=== PATIENT | female | born 1945 | race Caucasian/White ===

== ENCOUNTER → 2016-12-01 | Outpatient (CLI) | payer MEDICARE ==
[2016-12-01 14:26] LABS: HEMOGLOBIN 14.7 gm/dl (12.3-15.3); RED BLOOD COUNT 5.15 M/UL (4.00-5.10)
[2016-12-01 14:45] LABS: BUN/CREATININE RATIO 22 (0-10)
== END ==
LOC: OPSV 13:12
PROVIDERS: Physician Assistant
DX: J18.9 Pneumonia, unspecified organism (principal); R05 Cough; E86.0 Dehydration
CPT/HCPCS: 36415; 71020; 80048; 85025; 96360; J7030

== ENCOUNTER → 2021-01-09 | Outpatient (CLI) | payer MEDICARE ==
[~2021-01-09] MED LIST: ACIPHEX20 MG PO; ANTIVERT 12.512.5 MG PO; AVAPRO75 MG PO; CARDIZEM CD120 MG PO; CYMBALTA 30 MG30 MG PO; ECOTRIN81 MG PO; GRALISE600 MG PO; NASONEX17 GM; NORVASC 5 MG TAB5 MG PO; PRAVACHOL40 MG PO; PROAIR HFA8.5 GM INH; SINGULAIR10 MG PO; SYNTHROID175 MCG PO; SYNTHROID200 MCG PO; ULTRAM50 MG PO; VASCEPA1 GM PO; VIBRAMYCIN100 MG PO; VITAMIN D250000 UNIT PO; ZOFRAN ODT 4 MG4 MG SL
== END ==
LOC: MAMO 10:12
DX: Z12.31 Encounter for screening mammogram for malignant neoplasm of breast (principal); Z90.710 Acquired absence of both cervix and uterus
CPT/HCPCS: 77063; 77067

== ENCOUNTER → 2021-05-22 | Outpatient (CLI) | payer MEDICARE | LOC: KOH-I 05-21 10:21 | DX: M51.36 Other intervertebral disc degeneration, lumbar region (principal); M51.27 Other intervertebral disc displacement, lumbosacral region; M51.26 Other intervertebral disc displacement, lumbar region; M43.26 Fusion of spine, lumbar region | CPT/HCPCS: 72148 ==

== ENCOUNTER → 2021-07-20 | Outpatient (CLI) | payer MEDICARE | LOC: KOH-I 09:45 | DX: R07.81 Pleurodynia (principal); M79.604 Pain in right leg; M47.814 Spondylosis without myelopathy or radiculopathy, thoracic region | CPT/HCPCS: 72070; 73562; 73590 ==

== ENCOUNTER → 2021-12-03 | Outpatient (CLI) | payer MEDICARE | LOC: KOH-I 12:41 | DX: M47.24 Other spondylosis with radiculopathy, thoracic region (principal) | CPT/HCPCS: 72146 ==

== ENCOUNTER → 2021-12-14 | Outpatient (CLI) | payer MEDICARE | LOC: RAD 10:12 | DX: M54.16 Radiculopathy, lumbar region (principal); M48.061 Spinal stenosis, lumbar region without neurogenic claudication; M46.06 Spinal enthesopathy, lumbar region; M46.07 Spinal enthesopathy, lumbosacral region; M48.07 Spinal stenosis, lumbosacral region; Z98.1 Arthrodesis status | CPT/HCPCS: 72120 ==

== ENCOUNTER → 2021-12-22 | Outpatient (CLI) | payer MEDICARE | LOC: LAB 09:42 | DX: E11.9 Type 2 diabetes mellitus without complications (principal); M96.1 Postlaminectomy syndrome, not elsewhere classified | CPT/HCPCS: 36415; 83036; 87081 ==

== ENCOUNTER → 2022-02-08 | Outpatient (CLI) | payer MEDICARE | LOC: RAD 11:19 → MAMO 11:19 → EDSTATUS 12:34 | DX: Z12.31 Encounter for screening mammogram for malignant neoplasm of breast (principal); Z90.710 Acquired absence of both cervix and uterus | CPT/HCPCS: 77063; 77067 ==